=== PATIENT | male | born 1995 | race Caucasian/White ===

== ENCOUNTER 2017-11-27 21:55 | Emergency (ER) | payer OTHER ==
[~2017-11-27] VITALS: Ht 195.6 cm; Wt 92.9 kg
[2017-11-27 21:59] VITALS: BP 127/73; TEMP 36.8; Ht 195.6 cm; Wt 92.9 kg
[2017-11-27] MEDS ORDERED: VALA1TAB2 PO (22:43)
[2017-11-27] MEDS ORDERED: IBUP-103 PO (22:49)
[2017-11-27] MEDS ORDERED: OSEL75CA23 PO (22:49)
[2017-11-27 22:53] VITALS: PULSE 77; O2SAT 97
--- NOTE | 2017-11-28 06:32 | EMERGENCY ROOM VISIT NOTE ---
History First contact with patient: 22:26 Chief Complaint: EYE ASSESSMENT Stated Complaint: SORE NEXT TO EYE CAUSING IRRITATION History of Present Illness The patient is a 22 year old male who presents to the Emergency Room with complaints of irritation just to the outside of his left eye. The patient states that he has had similar symptoms like this in the past when he gets sick. He states that he has been having some mild flulike symptoms for the past 5 or 6 days that he has been treating with [id number] medication. He has not had distinct fever or chills, but notes that yesterday he started having a rash on the skin just to the left of his left eye. The patient states this is like a cold sore, and he previously has followed with ophthalmology for this. The patient is not having eye pain or visual changes. He does have some discomfort in this area and rates his current pain a 5/10. Review of Systems More than 10 systems were reviewed and otherwise negative with the exception of history of present illness. Past Medical/Surgical History No chronic medical disease Family History No pertinent family history Social History Smoking Status: Never Smoker Current/Historical Medications Scheduled Oseltamivir Phosphate (Tamiflu), 75 MG PO BID Valacyclovir Hcl (Valtrex), 1,000 MG PO BID Scheduled PRN Ibuprofen Tab (Advil), 200 MG PO UD PRN for Pain or Fever Physical Exam Vital Signs Date Time Temp Pulse Resp B/P (MAP) Pulse Ox O2 Delivery O2 Flow Rate FiO2 11/27/17 22:53 77 97 11/27/17 21:59 36.8 82 18 127/73 98 Room Air Physical Exam VITALS: Vitals are noted on the nurse's note and reviewed by myself. Vital signs stable. GENERAL: Well-developed, well-nourished, white male, who is in no acute distress and resting comfortably. Patient is cooperative with the examination. EYES: Pupils equal round and reactive to light and accommodation. Conjunctivae without injection, sclerae without icterus. Extraocular movements intact. Fluorescein exam preferred without foreign body, abrasion, or ulceration. Just to the left of the lateral canthus is a small 4 mm area of erythema with 2 punctate vesicles HEART: Regular rate and rhythm without murmurs gallops or rubs. LUNGS: Clear to auscultation bilaterally without wheezes, rales or rhonchi. No retractions or accessory muscle use. Medical Decision & Procedures Medications Administered Medications (Trade) Dose Ordered Sig/Amy Route Start Time Stop Time Status Last Admin Dose Admin Valacyclovir HCl (Valtrex Tab) 1,000 mg NOW ONCE PO 11/27/17 22:45 11/27/17 22:46 DC 11/27/17 22:47 1,000 MG ED Course Physical exam and history were performed. Nursing notes, EMR, and Medication List were personally reviewed. Patient appears to have a small herpetic-like lesion just to the left of his left eye. No other similar lesions are noted to suggest a shingles rash. The globe itself does not have significant findings in his vision is not changed. Evidently the patient has had this in the past. I will start him on Valtrex and have him avoid using his contact lenses. The patient is to follow with his primary care physician with any ongoing or persistent symptoms. He was freezing plan of care and voiced understanding. The chart was completed utilizing [employer] Voice Recognition Software. Grammatical errors, random word insertions, pronoun errors, and incomplete sentences are an occasional consequence of this system due to software limitations, ambient noise, and hardware issues. Any formal questions or concerns about the content, text, or information contained within the body of this dictation should be directly addressed to the provider for clarification. . Medical Decision Differential diagnosis includes, but is not limited to: Ulceration, laceration, cellulitis, stye, chalazion, herpetic lesion, and others Impression Primary Impression: Cold sore Departure Information Dispostion Home / Self-Care Condition GOOD Prescriptions Valacyclovir Hcl (VALTREX) 1 Gm Tab 1000 MG PO BID for 10 Days, #20 TAB Prov: Star Carrington PA-C 11/27/17 Referrals No Doctor, Assigned [facility] (PCP) Forms HOME CARE DOCUMENTATION FORM, IMPORTANT VISIT INFORMATION Patient Instructions My [facility] Additional Instructions You were seen and evaluated today on an emergency basis only. This is not a substitute for, or an effort to provide, complete comprehensive medical care. It is not possible to recognize and treat all injuries or illnesses in a single emergency department visit. For this reason it is recommended that you followup with your primary care physician with any ongoing or persisting issues. Take Valtrex 1000 mg twice daily for the next 10 days. You are welcome to return to the emergency department anytime with new, worsening, or concerning symptoms.
== END 2017-11-27 22:54 | disposition home or self-care (01) ==
LOC: C.EDB 21:56 → C.EDA 22:54
DX: B00.1 Herpesviral vesicular dermatitis (principal)